=== PATIENT | male | born 1975 | race Caucasian/White ===

== ENCOUNTER 2016-10-06 01:56 | Emergency (ER) | payer BC, OTHER ==
[2016-10-06 02:15] VITALS: BP 147/87
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
--- NOTE | 2016-10-06 18:02 | CR ---
Left knee: Four views of the left knee were obtained utilizing portable technique. Comparison: No previous left knee exam. Mild medial joint space narrowing is seen. Lateral joint space is preserved. Large joint effusion is identified. Small lucency is seen off the anterior patella which is felt to be benign. No acute fracture or other abnormality is seen. Impression: 1. Large joint effusion. 2. Other incidental findings as described above. Diagnostic code #3
--- NOTE | 2016-10-06 18:02 | US ---
Left lower extremity deep venous ultrasound: Duplex and color flow imaging was obtained of the left common femoral, superficial femoral, proximal greater saphenous, popliteal, posterior tibial and peroneal veins. Right common femoral vein was also evaluated. Comparison: No previous study. Findings: Normal phasic flow, augmentation and compression are seen. Mild subcutaneous edema seen within the left lower extremity. Impression: 1. Mild subcutaneous edema. 2. No findings of deep venous thrombosis is seen within the left lower extremity or within the right common femoral vein. Diagnostic code #2 I agree with preliminary report issued by [facility] (report finalized on 10/06/16, 4:27 AM Central Time)
== END 2016-10-06 03:43 | disposition home or self-care (01) ==
LOC: JD.ED 01:56
DX: M25.462 Effusion, left knee (principal); E78.00 Pure hypercholesterolemia, unspecified; I10 Essential (primary) hypertension; F41.9 Anxiety disorder, unspecified; Z79.899 Other long term (current) drug therapy; Z91.09 Other allergy status, other than to drugs and biological substances
CPT/HCPCS: 36415; 73562-26-LT; 73562-LT; 85025; 93971-26-LT; 93971-LT; 99282; 99284-25

== ENCOUNTER 2018-10-26 12:51 | Emergency (ER) | payer BC ==
[2018-10-26 13:00] VITALS: BP 122/90
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
[2018-10-26] MEDS ORDERED: Dextrose 5%-0.9% NaCl 1,000 ML IV SCH (13:30)
--- NOTE | 2018-10-26 19:34 | CR ---
Chest: Portable view of the chest was obtained. Comparison: Prior chest x-ray of 06/24/16. Heart size and mediastinum are normal. Lungs are clear. Bony structures appear grossly intact. Impression: 1. Nothing acute is seen on portable chest x-ray. Diagnostic code #1
== END 2018-10-26 16:40 | disposition home or self-care (01) ==
LOC: JD.ED 12:51
DX: I47.1 Supraventricular tachycardia (principal); I10 Essential (primary) hypertension; F41.9 Anxiety disorder, unspecified; Z91.030 Bee allergy status; Z79.899 Other long term (current) drug therapy
CPT/HCPCS: 36415; 71045; 80053; 82553; 83735; 83880; 84443; 84484; 85007; 85027; 85610; 86140; 93005; 96360; 96361; 99285; J7042; 93010

== ENCOUNTER 2021-02-01 21:18 | Emergency (ER) | payer BC ==
[2021-02-01] MEDS ORDERED: Adenosine 12 MG/4 ML SDV ONE (21:29)
[2021-02-01] MEDS ORDERED: Adenosine 6 MG/2 ML SDV ONE (21:29)
[2021-02-01] MEDS ORDERED: Midazolam 1 MG/ML 2 ML SDV IVPUSH ONE (21:33)
[2021-02-01] MEDS ORDERED: Sodium Chloride 0.9% 1,000 ML IV ONE (21:33)
[2021-02-01] MEDS ORDERED: Adenosine 6 MG/2 ML SDV IVPUSH ONE (21:37)
[2021-02-01] MEDS ORDERED: Magnesium Sulfate/Water 50 ML ONE (21:46)
--- NOTE | 2021-02-01 22:30 | EDM.PDOC ---
ED HPI GENERAL MEDICAL PROBLEM - General Chief Complaint: Cardiovascular Problem Stated Complaint: AFIB Time Seen by Provider: 02/01/21 21:32 Source of Information: Reports: Patient History Limitations: Reports: No Limitations - History of Present Illness INITIAL COMMENTS - FREE TEXT/NARRATIVE: Patient is a 45-year-old male who presents with a heart rate over 200. He has a history of paroxysmal atrial fibrillation and feels his symptoms started approximately an hour prior to arrival. He is not complaining of any chest pain or shortness of breath. He is not nauseous has not been vomiting. Patient has received adenosine in the past and did do vagal maneuver by placing his face and bowl of ice water without any change in his heart rhythm. Patient did take more of his Lopressor prior to arrival without any change in symptoms. Patient had been drinking alcohol earlier today and drinks on a regular basis. He denies any bloody or tarry looking stools. He denies any Covid symptoms. Onset: Today Location: Reports: Chest - Related Data Allergies Allergy/AdvReac Type Severity Reaction Status Date / Time bee pollen Allergy Hives Verified 02/01/21 21:34 Home Meds: Home Meds FLUoxetine [PROzac] 20 mg PO DAILY 06/25/16 [History] [place]-3/DHA/Epa/Fish Oil [[place]-3 Fish Oil 1,000 MG Sfgl] 4,000 mg PO DAILY 10/26/18 [History] lisinopriL [Prinivil] 10 mg PO DAILY 10/26/18 [History] Past Medical History - Past Health History Medical/Surgical History: Denies Medical/Surgical History Cardiovascular History: Reports: Arrhythmia, High Cholesterol, Hypertension Other Cardiovascular History: SVT Gastrointestinal History: Reports: Pancreatitis Neurological History: Reports: Head Trauma Psychiatric History: Reports: Anxiety - Infectious Disease History Infectious Disease History: Reports: Chicken Pox Social & Family History - Family History Family Medical History: No Pertinent Family History - Tobacco Use Tobacco Use Status *Q: Unknown Ever Used Tobacco - Caffeine Use Caffeine Use: Reports: Tea - Living Situation & Occupation Living situation: Reports: Occupation: Employed ED ROS GENERAL - Review of Systems Review Of Systems: Comprehensive ROS is negative, except as noted in HPI. Respiratory: Reports: No Symptoms Cardiovascular: Reports: Palpitations GI/Abdominal: Reports: No Symptoms Musculoskeletal: Reports: No Symptoms ED EXAM, GENERAL - Physical Exam Exam: See Below Exam Limited By: No Limitations General Appearance: Alert, No Apparent Distress Head: Atraumatic Neck: Supple Respiratory/Chest: No Respiratory Distress, Lungs Clear Cardiovascular: Tachycardia GI/Abdominal: Normal Bowel Sounds Back Exam: Normal Inspection Extremities: Normal Inspection Neurological: Alert, Oriented Psychiatric: Normal Affect. No: Anxious Skin Exam: Warm, Dry Lymphatic: No Adenopathy #1 Interpretation EKG Date: 02/01/21 Rhythm: A-Fib QRS: Normal ST-T: Normal EKG Interpretation Comments: Atrial fibrillation with RVR. Course - Vital Signs Text/Narrative:: Patient received 1 dose of adenosine 6 mg IV which broke him from his atrial fibrillation. He is now in normal sinus rhythm without any ST or T wave changes. Patient feels fine and did not have the usual near experience that most we will get with adenosine. He is requesting to be discharged home at this point. Last Recorded V/S: Last Vital Signs Temp 97.2 F 02/01/21 21:35 Pulse 100 02/01/21 21:56 Resp 18 02/01/21 21:56 BP 118/83 02/01/21 21:56 Pulse Ox 99 02/01/21 21:56 - Orders/Labs/Meds Orders: Active Orders 24 hr Category Date Time Status Magnesium Sulfate/D5W [Magnesium Sulfate in D5W 1 GM/ Med 02/01/21 21:34 Ordered 100 ML] 1 gm Premix Bag 1 bag IV ONETIME Sodium Chloride 0.9% [Normal Saline] 1,000 ml Med 02/01/21 21:33 Ordered IV ONETIME Medication Orders Sodium Chloride (Normal Saline) 1,000 mls @ 1,000 mls/hr IV ONETIME ONE Stop: 02/01/21 22:32 Last Admin: 02/01/21 21:54 Dose: 1,000 mls/hr Documented by: KELSEY Magnesium Sulfate/Dextrose 1 (gm/ Premix) 100 mls @ 100 mls/hr IV ONETIME ONE Stop: 02/01/21 22:33 Labs: Laboratory Tests 02/01/21 02/01/21 Range/Units 21:25 21:25 WBC 10.09 H (4.23-9.07) K/mm3 RBC 4.95 (4.63-6.08) M/mm3 Hgb 16.0 (13.7-17.5) gm/dl Hct 45.5 (40.1-51.0) % MCV 91.9 (79.0-92.2) fl MCH 32.3 H (25.7-32.2) pg MCHC 35.2 (32.2-35.5) g/dl RDW Std Deviation 41.5 (35.1-43.9) fL Plt Count 292 (163-337) K/mm3 MPV 9.4 (9.4-12.3) fl Neutrophils % (Manual) 58 (40-60) % Band Neutrophils % 0 (0-10) % Lymphocytes % (Manual) 37 (20-40) % Atypical Lymphs % 0 % Monocytes % (Manual) 4 (2-10) % Eosinophils % (Manual) 1 (0.8-7.0) % Basophils % (Manual) 0 L (0.2-1.2) Platelet Estimate Adequate RBC Morph Comment Normal Sodium 137 (136-145) mEq/L Potassium 3.3 L (3.5-5.1) mEq/L Chloride 100 (98-107) mEq/L Carbon Dioxide 21 (21-32) mEq/L Anion Gap 19.3 H (5-15) BUN 10 (7-18) mg/dL Creatinine 0.9 (0.7-1.3) mg/dL Est Cr Clr Drug Dosing 104.77 mL/min Estimated GFR (MDRD) > 60 (>60) mL/min BUN/Creatinine Ratio 11.1 L (14-18) Glucose 146 H (70-99) mg/dL Calcium 9.5 (8.5-10.1) mg/dL Total Bilirubin 0.5 (0.2-1.0) mg/dL AST TNP ALT TNP Alkaline Phosphatase 115 (46-116) U/L Troponin I < 0.017 (0.00-0.056) ng/mL Total Protein 7.9 (6.4-8.2) g/dl Albumin 4.0 (3.4-5.0) g/dl Globulin 3.9 gm/dL Albumin/Globulin Ratio 1.0 (1-2) Meds: Medications Generic Name Dose Route Start Last Admin Trade Name Freq PRN Reason Stop Dose Admin Sodium Chloride 1,000 mls @ 1,000 mls/hr 02/01/21 21:33 02/01/21 21:54 Normal Saline IV 02/01/21 22:32 1,000 mls/hr ONETIME ONE Administration Magnesium Sulfate/Dextrose 1 100 mls @ 100 mls/hr 02/01/21 21:34 gm/ Premix IV 02/01/21 22:33 ONETIME ONE Discontinued Medications Generic Name Dose Route Start Last Admin Trade Name Ti PRMichele Reason Stop Dose Admin Adenosine Confirm 02/01/21 21:29 02/01/21 21:38 Adenosine 6 Mg/2 Ml Sdv Administered 02/01/21 21:30 Not Given Dose 6 mg .ROUTE .STK-MED ONE Adenosine Confirm 02/01/21 21:29 02/01/21 21:38 Adenosine 12 Mg/4 Ml Sdv Administered 02/01/21 21:30 Not Given Dose 12 mg .ROUTE .STK-MED ONE Adenosine 6 mg 02/01/21 21:37 02/01/21 21:34 Adenosine 6 Mg/2 Ml Sdv IVPUSH 02/01/21 21:38 6 mg NOW ONE Administration Magnesium Sulfate Confirm 02/01/21 21:46 02/01/21 21:56 Magnesium Sulfate In Water 2 Gm/50 Ml Administered 02/01/21 21:47 25 mls/hr Dose Administration 50 mls @ as directed .ROUTE .STK-MED ONE Midazolam HCl 1 mg 02/01/21 21:33 02/01/21 21:45 Midazolam 1 Mg/Ml 2 Ml Sdv IVPUSH 02/01/21 21:34 Not Given ONETIME ONE Departure - Departure Time of Disposition: 22:32 Disposition: Home, Self-Care 01 Condition: Good Clinical Impression: Atrial fibrillation with rapid ventricular response Instructions: Atrial Fibrillation, [id number] Referrals: Austin De Los Santos MD [Primary Care Provider] - Additional Instructions: See apigee developer to possibly adjust her medications and for possible electrophysiology work-up. Avoid alcohol and to a talk to your apigee developer. Return to ER if symptoms are worse. Sepsis Event Note (ED) - Evaluation Sepsis Screening Result: No Definite Risk - Focused Exam Vital Signs: Vital Signs Temp Pulse Resp BP Pulse Ox 02/01/21 21:56 100 18 118/83 99 02/01/21 21:35 97.2 F 210 H 14 115/79 100 - My Orders Last 24 Hours: My Active Orders 02/01/21 21:33 Sodium Chloride 0.9% [Normal Saline] 1,000 ml IV ONETIME 02/01/21 21:34 Magnesium Sulfate/D5W [Magnesium Sulfate in D5W 1 GM/100 ML] 1 gm Premix Bag 1 bag IV ONETIME - Assessment/Plan Last 24 Hours: My Active Orders 02/01/21 21:33 Sodium Chloride 0.9% [Normal Saline] 1,000 ml IV ONETIME 02/01/21 21:34 Magnesium Sulfate/D5W [Magnesium Sulfate in D5W 1 GM/100 ML] 1 gm Premix Bag 1 bag IV ONETIME
[2021-02-01 22:52] VITALS: BP 112/87; PULSE 92
== END 2021-02-01 22:48 | disposition home or self-care (01) ==
LOC: JD.ED 21:18
DX: I48.91 Unspecified atrial fibrillation (principal); E78.00 Pure hypercholesterolemia, unspecified; I10 Essential (primary) hypertension; Z91.030 Bee allergy status; Z79.899 Other long term (current) drug therapy
CPT/HCPCS: 36415; 80053; 84484; 85007; 85027; 93005; 93010; 96374; 99284; 99285-25; J0153; J3475; J7030

== ENCOUNTER 2023-04-16 23:13 | Emergency (ER) | payer BC, OTHER ==
[2023-04-16 23:27] VITALS: BP 153/99; PULSE 114
== END 2023-04-16 23:30 | disposition left against medical advice (07) ==
LOC: JD.ED 23:13
DX: Z53.21 Procedure and treatment not carried out due to patient leaving prior to being seen by health care provider (principal)